=== PATIENT | male | born 1950 | race Caucasian/White ===

== ENCOUNTER 2018-10-13 07:08 | Day surgery (SDC) | payer OTHER ==
[~2018-10-13] VITALS: Ht 170.2 cm; Wt 85.5 kg
[~2018-10-13 07:08] MED LIST: SODIUM CHLORIDE 0.9% 1,000 ML IV ONE
[2018-10-13] MEDS ORDERED: ALBUTEROL SULFATE 2.5 MG/0.5 ML NEB SOLUTION NEB ONE (07:09)
[2018-10-13] MEDS ORDERED: BENZOCAINE 20% 50 MCG/SPRAY 57 GM TP ONE (07:09)
[2018-10-13] MEDS ORDERED: LIDOCAINE 2% 30 ML JELLY TP ONE (07:09)
[2018-10-13] MEDS ORDERED: FentaNYL CITRATE-PF 100 MCG/2 ML VIAL ONE (07:53)
[2018-10-13] MEDS ORDERED: MIDAZOLAM HCL 2 MG/2 ML VIAL ONE (07:53)
[2018-10-13] MEDS ORDERED: MONT10TA21 PO (08:18)
[2018-10-13] MEDS ORDERED: OMEP20 PO (08:18)
[2018-10-13] MEDS ORDERED: FLUT1AER5 IH (08:18)
[2018-10-13] MEDS ORDERED: GABA-531 PO (08:18)
[2018-10-13] MEDS ORDERED: MethylPREDNISolone SOD SUCC 125 MG/2 ML VIAL IVP ONE (09:30)
[2018-10-13] MEDS ORDERED: OXYGEN THERAPY IH SCH (20:00)
== END 2018-10-13 10:55 | disposition home or self-care (01) ==
LOC: SURGERY 07:08 → EDSEX 08:30 → SURGERY 10:55
PROVIDERS: ATTEND Internal Medicine Critical Care Medicine
DX: J38.4 Edema of larynx (principal); B37.0 Candidal stomatitis; J39.8 Other specified diseases of upper respiratory tract; J47.9 Bronchiectasis, uncomplicated; Z87.891 Personal history of nicotine dependence
CPT/HCPCS: 31623; 31624; 71045; 87015; 87070; 87101; 87205; 87206; 87220; 88108; 88312; J2250; J2930; J3010; J7030